=== PATIENT | female | born 1970 | race Caucasian/White ===

== ENCOUNTER → 2016-04-07 | Outpatient (CLI) | payer BC ==
--- NOTE | 2016-04-07 21:30 | WWHP ---
CHIEF COMPLAINT: The patient is here for her routine gynecologic exam. HPI: This is a 45-year-old,G3, P2-1-0-2 with an LMP of 03/22/2016. The patient has used condoms for control. The patient states her periods have gotten slightly more irregular. They have been typically about every 23 to 28 days. She denies hot flashes. She has had a couple of periods that were very crampy and this is unusual for her. Her last crampy one was in January. She is otherwise without complaints. PAST MEDICAL HISTORY: Hypothyroidism. MEDICATIONS: 1. Synthroid 125 mcg daily. 2. Multivitamin daily. 3. Calcium supplement daily. 4. Vitamin C supplement daily. 5. Fish oil supplement daily. ALLERGIES: AUGMENTIN, WHICH CAUSED HIVES. PAST SURGICAL HISTORY: Ear surgery in 2003. 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 She has no history of STDs. SOCIAL HISTORY: She denies tobacco, alcohol and drug use. She has been since 1987 and works part-time [employer] products such as [employer] and [employer]. FAMILY HISTORY: Father had an [place] at age 43. REVIEW OF SYSTEMS: Weight has been stable. She denies respiratory, cardiac or GI problems. PHYSICAL EXAM: Blood pressure 106/68. Height 5 feet 4 inches. Weight 119 pounds. Temperature 98.6, pulse 74. This a well-developed, well-nourished white female who is alert and oriented x3, in no acute distress. HEENT is within normal limits. NECK: Supple without mass or thyromegaly. CHEST AND LUNGS: Clear to auscultation. HEART: Regular rate and rhythm. Breasts are without mass or discharge. Axillary is negative for adenopathy. BACK: Negative for CVA tenderness. ABDOMEN: Soft, nontender without palpable masses. PELVIC: Normal external genitalia. Cervix and vagina appear normal. There is no evidence of prolapse. The uterus is midposition, nongravid size and nontender. There are no palpable adnexal masses or tenderness. Rectovaginal is negative for mass or tenderness and is negative for occult blood. EXTREMITIES: Nontender. IMPRESSION: 1. A 45-year-old gynecologically healthy female. 2. Possible early perimenopause. PLAN: 1. Pap smear was deferred, since her last Pap smear was negative and this was less than 2 years ago. 2. Self-breast examination was discussed. 3. Mammogram was recommended, but this is refused by the patient. She is instructed to call if she changes her mind. I have stressed importance of this type of screening. 4. The patient will keep a menstrual calendar and call if she is having menstrual problems. 5. She will return in 1 year.
== END | disposition home or self-care (01) ==

== ENCOUNTER → 2017-06-29 | Outpatient (CLI) | payer BC ==
[2017-06-29 09:00] VITALS: PULSE 80; RESP 18; TEMP 97.5; BMI 21.2
--- NOTE | 2017-06-29 09:39 | P.HPOB ---
History of Present Illness H&P Date: 06/29/17 Chief Complaint: The patient is here for her routine gynecologic exam. This is a 46-year-old 102 with an LMP of 06/19/2017. The patient states her menses have been normal about every 3 to 4 weeks. They are typically lasting 3 to 5 days. The patient is without gynecologic complaints. She has used condoms for control. Review of Systems She is getting about 6 pounds over the last year. She denies respiratory, cardiac, or G.I. problems. Past Medical History Past Medical History: Thyroid Disorder Additional Past Medical History / Comment(s): Past OB history: one third trimester IUFD and two term vaginal deliveries. 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 History of Any Multi-Drug Resistant Organisms: None Reported Past Surgical History: Ear Surgery (2003) Past Psychological History: No Psychological Hx Reported Smoking Status: Never smoker Past Alcohol Use History: None Reported Past Drug Use History: None Reported Additional History: She has been since 1987. She works part-time [employer] products such as [employer]. - Past Family History Mother Family Medical History: No Reported History Father Family Medical History: Myocardial Infarction ([place]) Additional Family Medical History / Comment(s): of heart disease Medications and Allergies Home Medications Medication Instructions Recorded Confirmed Type Levothyroxine Sodium [Synthroid] 125 mcg PO DAILY 06/29/17 06/29/17 History Multivitamin,Therapeutic [Thera] 1 each PO DAILY 06/29/17 06/29/17 History Allergies Allergy/AdvReac Type Severity Reaction Status Date / Time amoxicillin [From Augmentin] Allergy Rash/Hives Verified 06/29/17 09:02 clavulanic acid Allergy Rash/Hives Verified 06/29/17 09:02 [From Augmentin] Exam - Vital Signs Vital signs: Vital Signs Temp Pulse Resp 06/29/17 08:55 97.5 F L 80 18 Intake and Output 06/28/17 06/29/17 06/29/17 22:59 06:59 14:59 Other: Weight 56.245 kg Height 5'4" BMI 21.3. This is a well-developed well-nourished white female who is alert and oriented times 3 in no acute distress. HEENT: Within normal limits. NECK: Supple without mass or thyromegaly. CHEST AND LUNGS: Clear to auscultation. HEART: Regular rate and rhythm. BREASTS: Are without mass or discharge. AXILLARY EXAM: Negative for adenopathy. BACK: Negative for CVA tenderness. ABDOMEN: Soft, nontender, without palpable masses. PELVIC EXAM: Normal external genitalia. Cervix and vagina appear normal. There is no unusual discharge. There is no evidence of prolapse. The uterus is midposition, nongravid size and nontender. There are no palpable adnexal masses or tenderness. RECTAL EXAM: negative for mass or tenderness and is negative for occult blood. EXTREMITIES: Nontender. IMPRESSION: 1. 46-year-old premenopausal female with normal gynecologic exam. 2. The patient is declining screening mammography. PLAN: 1. Pap smear was performed. 2. Self breast awareness was discussed. I have recommended screening mammography but she is declining this. She feels she is at low risk for breast cancer. She understands that low risk women can also develop breast cancer and mammography can be helpful at detecting preclinical breast cancer lesions. She will let me know she changes her mind about mammogram screening. 3. She will return in one year.
== END | disposition home or self-care (01) ==
LOC: WWCWWP 08:34
PROVIDERS: ATTEND Obstetrics & Gynecology
DX: Z53.9 Procedure and treatment not carried out, unspecified reason (principal)

== ENCOUNTER → 2018-10-25 | Outpatient (CLI) | payer BC ==
[2018-10-25 07:56] VITALS: BP 112/57; PULSE 85; RESP 16; TEMP 98.5; BMI 21.4
--- NOTE | 2018-10-25 08:41 | P.HPOB ---
History of Present Illness H&P Date: 10/25/18 Chief Complaint: The patient is here for her routine gynecologic exam. This is a 48 year old with an LMP of 10/11/2018. The patient states her menses have been fairly regular every 26 to 29 days. She denies any significant hot flashes. She is without gynecologic complaints. She has used condoms for control. Review of Systems The patient's weight has been stable over the last year. She denies respiratory, cardiac, or G.I. problems. Past Medical History Past Medical History: Thyroid Disorder Additional Past Medical History / Comment(s): Hypothyroidism. Past OB history: one third trimester IUFD and two term vaginal deliveries. 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 History of Any Multi-Drug Resistant Organisms: None Reported Past Surgical History: Ear Surgery Past Psychological History: No Psychological Hx Reported Smoking Status: Never smoker Past Alcohol Use History: None Reported Past Drug Use History: None Reported Additional History: She has been since 1987. She works part-time [employer] products such as [employer]. - Past Family History Mother Family Medical History: No Reported History Father Family Medical History: Myocardial Infarction ([place]) Additional Family Medical History / Comment(s): of heart disease Medications and Allergies Home Medications Medication Instructions Recorded Confirmed Type Levothyroxine Sodium [Synthroid] 125 mcg PO DAILY 06/29/17 10/25/18 History Multivitamin,Therapeutic [Thera] 1 each PO DAILY 06/29/17 10/25/18 History Allergies Allergy/AdvReac Type Severity Reaction Status Date / Time amoxicillin [From Augmentin] Allergy Rash/Hives Verified 10/25/18 07:49 clavulanic acid Allergy Rash/Hives Verified 10/25/18 07:49 [From Augmentin] Exam Vital Signs Temp Pulse Resp BP Pulse Ox 10/25/18 07:53 98.5 F 85 16 112/57 100 Intake and Output 10/24/18 10/25/18 10/25/18 22:59 06:59 14:59 Other: Weight 56.699 kg Height 5'4", weight 125 pounds, BMI 21.5. This is a well-developed well-nourished white female who is alert and oriented times 3 in no acute distress. HEENT: Within normal limits. NECK: Supple without mass or thyromegaly. CHEST AND LUNGS: Clear to auscultation. HEART: Regular rate and rhythm. BREASTS: Are without mass or discharge. AXILLARY EXAM: Negative for adenopathy. BACK: Negative for CVA tenderness. ABDOMEN: Soft, nontender, without palpable masses. PELVIC EXAM: Normal external genitalia with mild atrophy. Cervix and vagina appear normal with mild atrophy. There is no unusual discharge. There is no evidence of prolapse. The uterus is midposition, nongravid size and nontender. There are no palpable adnexal masses or tenderness. RECTAL EXAM: rectovaginal exam is negative for mass or tenderness and is negative for occult blood. EXTREMITIES: Nontender. IMPRESSION: 1. 48 year old premenopausal female with normal gynecologic exam. 2. The patient is again declining screening mammography. PLAN: 1. Pap smear was performed. 2. Self breast awareness was discussed with the patient. 3. Screening mammography was recommended. The patient again has declined this. I have stressed the importance of mammography in finding cancer earlier, when present. I have recommended that she has a mammogram at least every 2 years for this reason. She understands these things and is declining mammography. She will call if she changes her mind. 4. Osteoporosis prevention was discussed. I have stressed the importance of adequate calcium, vitamin D and regular exercise. Recommended amounts of calcium and vitamin D were also discussed. 5. I have recommended screening colonoscopy based on her age. She states she will talk to Dr. Corbin about this and try to have this arranged through his office. 6. She was advised to return in one year for her annual well woman exam.
--- NOTE | 2018-11-02 12:34 | P.PN ---
Progress Note - Text Progress Note Date: 11/02/18 OUTPATIENT FOLLOW-UP NOTE TEST(S)/RESULTS: Pap smear done on 10/25/2018 was negative. METHOD OF NOTIFICATION: a message with this result was left on the patient's voicemail. PATIENT COMMENTS: DIAGNOSIS: negative Pap smear. DISCUSSION: PLAN: She was advised to return in one year for her annual well woman exam.
== END ==
LOC: WWCWWP 07:42
PROVIDERS: ATTEND Obstetrics & Gynecology
DX: Z53.9 Procedure and treatment not carried out, unspecified reason (principal)

== ENCOUNTER → 2019-12-27 | Outpatient (CLI) | payer BC ==
[2019-12-27 08:10] VITALS: BP 115/78; PULSE 85; RESP 16; TEMP 98
--- NOTE | 2019-12-27 09:00 | P.HPOB ---
History of Present Illness H&P Date: 12/27/19 Chief Complaint: The patient is here for her routine gynecologic exam. This is a 49-year-old with an LMP of 11/07/2019. The patient states that she has felt a lump in the left breast about 2 weeks ago. She denies any pain or nipple discharge. Her menstrual periods had been regular about every month until October. She had a menstrual period on 10/21/2019 and again on 11/07/2019. She has not had any bleeding since then. She has had an infrequent hot flash but nothing regular. She is otherwise without complaints. She has used condoms for control. Review of Systems The patient's weight has been stable over the last year. She denies respiratory, cardiac, or G.I. problems. Past Medical History Past Medical History: Thyroid Disorder Additional Past Medical History / Comment(s): Hypothyroidism. Past OB history: one third trimester IUFD and two term vaginal deliveries. 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 History of Any Multi-Drug Resistant Organisms: None Reported Past Surgical History: Ear Surgery Smoking Status: Never smoker Past Alcohol Use History: None Reported Past Drug Use History: None Reported Additional History: She has been since 1987. 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 - Past Family History Mother Family Medical History: No Reported History Father Family Medical History: Myocardial Infarction ([place]) Additional Family Medical History / Comment(s): of heart disease Medications and Allergies Home Medications Medication Instructions Recorded Confirmed Type Levothyroxine Sodium [Synthroid] 125 mcg PO DAILY 06/29/17 10/25/18 History Multivitamin,Therapeutic [Thera] 1 each PO DAILY 06/29/17 10/25/18 History Allergies Allergy/AdvReac Type Severity Reaction Status Date / Time amoxicillin [From Augmentin] Allergy Rash/Hives Verified 12/27/19 08:11 clavulanic acid Allergy Rash/Hives Verified 12/27/19 08:11 [From Augmentin] Exam Vital Signs Temp Pulse Resp BP Pulse Ox 12/27/19 08:01 98.0 F 85 16 115/78 98 Intake and Output 12/26/19 12/27/19 12/27/19 22:59 06:59 14:59 Other: Weight 56.699 kg Height 5 feet 4 inches, weight 125 pounds, BMI 21.5. This is a well-developed well-nourished white female who is alert and oriented times 3 in no acute distress. HEENT: Within normal limits. NECK: Supple without mass or thyromegaly. CHEST AND LUNGS: Clear to auscultation. HEART: Regular rate and rhythm. BREASTS: The left breast has a 1.5 x 1.0 cm smooth mobile mass at the 3 o'clock position. This is nontender. There are no other palpable masses. There is no nipple discharge or unusual puckering or dimpling. AXILLARY EXAM: Negative for adenopathy. BACK: Negative for CVA tenderness. ABDOMEN: Soft, nontender, without palpable masses. PELVIC EXAM: Normal external genitalia. Cervix and vagina appear normal. There is no unusual discharge. There is no evidence of prolapse. The uterus is midposition, slightly retroverted, nongravid size and nontender. There are no palpable adnexal masses or tenderness. RECTAL EXAM: Rectovaginal exam is negative for mass or tenderness and is negative for occult blood. EXTREMITIES: Nontender. IMPRESSION: 1. 49-year-old tiffanie-menopausal female with recent oligomenorrhea and minimal vasomotor symptoms. 2. Left breast mass measuring approximately 1.5 x 1.0 cm at the 3 o'clock position which was recently found by the patient. Differential diagnosis will include left breast cyst and other breast neoplasm. PLAN: 1. Pap smear was deferred since she had a normal one last year. 2. Self breast awareness was discussed with the patient. 3. A diagnostic bilateral mammogram with left breast ultrasound was ordered. This will be done today. 4. Osteoporosis prevention was discussed. I have stressed the importance of adequate calcium, vitamin D and regular exercise. Recommended amounts of calcium and vitamin D were also discussed. 5. I have recommended screening colonoscopy based on her age. She states she will do this through Dr. Corbin, her primary care physician, who has also recommended this. 6. She was advised to return in one year for her annual well woman exam.
--- NOTE | 2019-12-27 09:47 | MM ---
Reason for exam: additional evaluation requested from prior study. Last mammogram was performed 5 years and 7 months ago. History: Took hormonal contraceptives for 7 years beginning at age 17. Taking other hormone for 15 years beginning at age 23. Physical Findings: Nurse Summary: 1.5 x 1.0cm nodule in the left breast at 3 o'clock (Dr. Hall). MG Diagnostic Mammo w CAD SUMAN Bilateral CC and MLO view(s) were taken. Prior study comparison: May 16, 2014, bilateral MG screening mammo w CAD. May 22, 2013, CAD bilateral diagnostic mammogram. The breast tissue is heterogeneously dense. This may lower the sensitivity of mammography. Stable benign calcifications. Bilateral nodules. Ultrasound recommended. These results were verbally communicated with the patient and result sheet given to the patient on 12/27/19. ASSESSMENT: Incomplete: need additional imaging evaluation, BI-RAD 0 RECOMMENDATION: Ultrasound of both breasts. Manage patient on a clinical basis. Patient will return for ultrasound on 01/01/20 at 7:40.
== END | disposition home or self-care (01) ==
LOC: WWCWWP 07:47
PROVIDERS: ATTEND Obstetrics & Gynecology
DX: N63.21 Unspecified lump in the left breast, upper outer quadrant (principal)
CPT/HCPCS: 77066

== ENCOUNTER → 2020-01-01 | Outpatient (CLI) | payer BC ==
--- NOTE | 2020-01-01 13:24 | USB ---
Reason for exam: additional evaluation requested from abnormal screening. History: Took hormonal contraceptives for 7 years beginning at age 17. Taking other hormone for 15 years beginning at age 23. US Breast BILAT Right complete breast ultrasound includes all four quadrants, the retroareolar region and axilla. Finding demonstrates a 1.2 x 1.2 x 0.6cm oval, cystic lesion at 12 o'clock, a 0.5 x 0.7 x 0.3cm oval, cystic cluster at 12 o'clock, a 0.9 x 0.5 x 0.4cm oval, cystic cluster at 2 o'clock, a 0.4 x 0.4 x 0.3cm oval, mixed lesion at 4 o'clock, 6 month follow up recommended, a 0.4 x 0.4 x 0.4cm oval, cystic cluster at 7 o'clock, a 1.2 x 0.8 x 0.5cm oval, mixed cluster at 9 o'clock, 6 month follow up recommended, a 0.6 x 0.8 x 0.4cm oval, cystic cluster at 10 o'clock and a 1.3 x 0.7 x 0.9cm lymph node at the axilla. Left complete breast ultrasound includes all four quadrants, the retroareolar region and axilla. Finding demonstrates a 2.3 x 2.8 x 0.8cm oval, cystic lesion at 12 o'clock, a 0.8 x 0.5 x 0.2cm mixed lesion at 2 o'clock, 6 month follow up recommended, a 1.6 x 2.0 x 0.8cm oval, cystic lesion at 3 o'clock, palpable and benign, and a 0.6 x 0.6 x 0.4cm oval, cystic lesion at the posterior nipple. These results were verbally communicated with the patient and result sheet given to the patient on 01/01/20. ASSESSMENT: Probably benign, BI-RAD 3 RECOMMENDATION: Follow-up diagnostic mammogram and ultrasound of both breasts in 6 months.
== END | disposition home or self-care (01) ==
LOC: RADUSWWP 07:34
PROVIDERS: ATTEND Obstetrics & Gynecology
DX: R92.8 Other abnormal and inconclusive findings on diagnostic imaging of breast (principal)

== ENCOUNTER → 2021-07-24 | Day surgery (SDC) | payer BC ==
[2021-07-22 09:06] VITALS: BMI 21.6
[~2021-07-24] MED LIST: GLYCOPYRROLATE 0.2 MG/ML 2 ML VIAL ONE; LACTATED RINGERS 1,000 ML IV SCH; LIDOCAINE 1% (10MG/ML) FOR IV START INTRADERMA PRN; LIDOCAINE 2% INJ 20 MG/ML (2 ML VIAL) ONE; ONDANSETRON 4 MG/2 ML VIAL ONE; PROPOFOL 10 MG/ML 20 ML VIAL IV ONE
--- NOTE | 2021-07-24 07:57 | P.GSHP ---
History of Present Illness H&P Date: 07/24/21 CHIEF COMPLAINT: Colon screen HISTORY OF PRESENT ILLNESS: The patient is a 51-year-old female who presents for colon screen. Lower endoscopy was offered for further evaluation and management. PAST MEDICAL HISTORY: Please see list. PAST SURGICAL HISTORY: Please see list. MEDICATIONS: Please see list. ALLERGIES: Please see list. SOCIAL HISTORY: No illicit drug use FAMILY HISTORY: No reports of Crohn disease or ulcerative colitis. REVIEW OF ORGAN SYSTEMS: CONSTITUTIONAL: No reports of fevers or chills. PHYSICAL EXAM: VITAL SIGNS: Stable GENERAL: Well-developed pleasant in no acute distress. HEENT: No scleral icterus. Extraocular movements grossly intact. Moist buccal mucosa. NECK: Supple without lymphadenopathy. CHEST: Unlabored respirations. Equal bilateral excursions. CARDIOVASCULAR: Regular rate and rhythm. Distal 2+ pulses. ABDOMEN: Soft, nontender, nondistended. MUSCULOSKELETAL: No clubbing, cyanosis, or edema. ASSESSMENT: 1. Colon screen. PLAN: 1. Recommend proceeding with a lower endoscopy Past Medical History Past Medical History: Thyroid Disorder Additional Past Medical History / Comment(s): Hypothyroidism. History of Any Multi-Drug Resistant Organisms: None Reported Past Surgical History: Ear Surgery Past Anesthesia/Blood Transfusion Reactions: Family History of Problems w/ Anesthesia, Postoperative Nausea & Vomiting (PONV) Additional Past Anesthesia/Blood Transfusion Reaction / Comment(s): mother gets "extremely loopy" Past Psychological History: No Psychological Hx Reported Smoking Status: Never smoker Past Alcohol Use History: None Reported Past Drug Use History: None Reported - Past Family History Mother Family Medical History: No Reported History Father Family Medical History: Myocardial Infarction ([place]) Additional Family Medical History / Comment(s): of heart disease Medications and Allergies Home Medications Medication Instructions Recorded Confirmed Type Levothyroxine Sodium [Synthroid] 125 mcg PO HS 06/29/17 07/22/21 History Multivitamin,Therapeutic [Thera] 1 each PO DAILY 06/29/17 07/22/21 History Allergies Allergy/AdvReac Type Severity Reaction Status Date / Time amoxicillin [From Augmentin] Allergy Rash/Hives Verified 07/22/21 08:24 clavulanic acid Allergy Rash/Hives Verified 07/22/21 08:24 [From Augmentin]
[2021-07-24 08:26] VITALS: TEMP 97
--- NOTE | 2021-07-24 09:29 | P.PCN ---
Date of Procedure: 07/24/21 Description of Procedure: PREOPERATIVE DIAGNOSIS: Colonoscopy screening. POSTOPERATIVE DIAGNOSIS: Colonoscopy screening to transverse colon OPERATION: Colonoscopy to the transverse colon SURGEON: Sherry Summers MD. ANESTHESIA: MAC. INDICATIONS: The patient is a 51-year-old female who presents for her first colonoscopy screening. Benefits and risks were described and informed consent was obtained. DESCRIPTION OF PROCEDURE: The patient had undergone Sutab prep. The patient had been brought into the operating room and laid in the left lateral decubitus position. After adequate intravenous sedation, the rectum was examined with 2% lidocaine jelly. External hemorrhoids were encountered. The rectal tone was within normal limits. No lesions were palpated in the rectal vault. An Olympus colonoscope was advanced beyond the splenic flexure versus severe fracture and redundancy prohibited advancing the scope beyond the transverse colon. Despite multiple maneuvers including a suggestion rigidity the scope and abdominal wall pressure, advancing the scope beyond transverse colon was unsafe at higher risk of rupture of the colon. Colonoscopy terminated at the transverse colon. The prep was excellent. No scattered diverticulosis was encountered distal to the transverse colon. No colonic polyps were found distal to the transverse colon. No evidence of focal colitis was found. Retroflexion of the scope demonstrated grade 2 internal hemorrhoids without active bleeding or inflammation. The colon was desufflated. The patient had tolerated the procedure well. Withdrawal time was over 6 minutes. FINDINGS: Aronchick preparation quality scale 1 (1-5) Colonoscopy limited to the transverse colon due to extreme redundancy of sigmoid colon and higher risk of rupture Internal hemorrhoids, grade 2 External prolapsed hemorrhoids, grade 2 No arteriovenous malformations. No adenomatous polyps. No focal colitis. RECOMMENDATIONS: 1. Recommend barium enema for completion 2. Recommend Cologaurd Plan - Discharge Summary Discharge Rx Participant: No New Discharge Prescriptions: Continue Multivitamin,Therapeutic [Thera] 1 each PO DAILY Levothyroxine Sodium [Synthroid] 125 mcg PO HS Discharge Medication List Levothyroxine Sodium [Synthroid] 125 mcg PO HS 06/29/17 [History] Multivitamin,Therapeutic [Thera] 1 each PO DAILY 06/29/17 [History] Follow up Appointment(s)/Referral(s): Sherry Summers MD [STAFF PHYSICIAN] - 08/05/21 Patient Instructions/Handouts: Barium Enema (IP), *Surgery [facility] - (Anesthesia) Endoscopy Discharge Instructions, Colonoscopy (DC) Activity/Diet/Wound Care/Special Instructions: Recommend Cologaurd in future. Needs barium enema. Discharge Disposition: HOME SELF-CARE
[2021-07-24 09:46] VITALS: PULSE 67; RESP 18
[2021-07-24 10:12] VITALS: BP 114/56
--- NOTE | 2021-07-24 11:26 | XR ---
EXAMINATION TYPE: XR abdomen 1V DATE OF EXAM: 07/24/2021 11:12 AM CLINICAL HISTORY: Failed colonoscopy. TECHNIQUE: Two supine KUB images of the abdomen are obtained. COMPARISON: None. FINDINGS: Exam performed prior to ordered barium enema after failed colonoscopy but there is signific ant gas prominent colonic loops throughout the abdomen and pelvis extending to the cecum. Enema study had to be canceled for above. IMPRESSION: As above.
== END | disposition home or self-care (01) ==
LOC: ORWHC2ENDO 07:35
PROVIDERS: ATTEND Surgery Plastic and Reconstructive Surgery
DX: Z12.11 Encounter for screening for malignant neoplasm of colon (principal); E03.9 Hypothyroidism, unspecified; Z80.0 Family history of malignant neoplasm of digestive organs; Z82.49 Family history of ischemic heart disease and other diseases of the circulatory system; Z88.0 Allergy status to penicillin; Z88.1 Allergy status to other antibiotic agents; Z79.899 Other long term (current) drug therapy
CPT/HCPCS: 45378; 84703; 74018; J2405; J2704; J2001

== ENCOUNTER → 2023-10-14 | Outpatient (CLI) | payer BC ==
--- NOTE | 2023-10-19 09:19 | MM ---
Reason for Exam: Screening (asymptomatic). Last mammogram was performed 3 year(s) and 9 month(s) ago. Patient History: Menarche at age 11. First Full-Term at age 22. Postmenopausal. Hormonal Contraceptives, starting at age 17 for 7 years. Risk Values: Bethany 5 year model risk: 1.1%. NCI Lifetime model risk: 7.4%. Prior Study Comparison: 05/22/2013 Bilateral Diagnostic Mammogram, [facility]. 05/16/2014 Bilateral Screening Mammogram, [facility]. 12/27/2019 Bilateral Diagnostic Mammogram, [facility]. Tissue Density: The breasts are heterogeneously dense, which may obscure small masses. Findings: Analyzed By CAD. Right breast: There is no suspicious group of microcalcifications or new suspicious mass. Left breast: Masslike fibroglandular tissue in area of palpable abnormality in the upper outer aspect of the left breast approximately 27 mm from nipple measuring up to 23 x 19 mm. No suspicious calcifications. Overall Assessment: Incomplete: need additional imaging evaluation, BI-RAD 0 Management: Diagnostic Breast Ultrasound of the left breast. [facility] will attempt to contact patient to return for supplemental views and ultrasound if indicated. Patient should continue monthly self-breast exams. A clinical breast exam by your physician is recommended on an annual basis. This exam should not preclude additional follow-up of suspicious palpable abnormalities. Note on Bethany scores and lifetime risk: 1. A Bethany score greater than 3% is considered moderate risk. If this is the case, consider specialist referral to assess eligibility for a risk reducing agent. 2. If overall lifetime risk for the development of breast cancer is 20% or higher, the patient may qualify for future screening with alternating mammogram and breast MRI. Electronically signed and approved by: Avinash Greenwood DO
== END | disposition home or self-care (01) ==
LOC: RADMAMWWP 07:29
PROVIDERS: ATTEND Family Medicine
DX: Z12.31 Encounter for screening mammogram for malignant neoplasm of breast (principal); R92.333 Mammographic heterogeneous density, bilateral breasts; Z78.0 Asymptomatic menopausal state
CPT/HCPCS: 77067